=== PATIENT | male | born 1950 | race Caucasian/White ===

== ENCOUNTER 2020-06-04 07:13 | Outpatient (CLI) | payer MEDICARE, SELFPAY ==
[2020-06-05 14:22] LABS: SARS-CoV-2 RNA PCR Negative
== END 2020-06-04 07:14 | disposition home or self-care (01) ==
LOC: CHSLAB 07:19
PROVIDERS: Visit Provider Family Medicine
DX: Z20.828 Contact with and (suspected) exposure to other viral communicable diseases (principal)
CPT/HCPCS: 87635; C9803; U0003

== ENCOUNTER 2022-04-14 07:04 | Outpatient (CLI) | payer MEDICARE, SELFPAY ==
[2022-04-14 08:40] LABS: SARS-CoV-2 RNA PCR Negative (Negative)
== END 2022-04-14 07:05 | disposition home or self-care (01) ==
LOC: CHSLAB 07:13
DX: Z20.822 Contact with and (suspected) exposure to COVID-19 (principal)
CPT/HCPCS: C9803; U0003; U0005